=== PATIENT | female | born 1980 | race Caucasian/White ===

== ENCOUNTER 2016-05-29 06:00 | Inpatient (IN) | payer MEDICAID ==
[~2016-05-29] VITALS: Ht 165.1 cm; Wt 71.1 kg
[~2016-05-29 06:00] MED LIST: PREN-39 PO; RTPRO
[2016-05-29 06:26] VITALS: Ht 165.1 cm; Wt 71.1 kg
[2016-05-29] MEDS ORDERED: LIDOCAINE 1% (MPF) 30 ML INJ INJ PRN (06:30)
[2016-05-29] MEDS ORDERED: METHYLERGONOVINE 0.2 MG INJ IM PRN ×2 (06:30→23:00)
[2016-05-29] MEDS ORDERED: IBUPROFEN 600 MG TAB PO PRN (06:30)
[2016-05-29] MEDS ORDERED: OXYTOCIN 30 UNITS/LR 500 ML IV PRN ×2 (06:30→23:00)
[2016-05-29] MEDS ORDERED: MISOPROSTOL 200 MCG TAB PR PRN ×2 (06:30→23:00)
[2016-05-29] MEDS ORDERED: CARBOPROST 250 MCG INJ IM PRN ×2 (06:30→23:00)
[2016-05-29 06:45] VITALS: BP 138/78; PULSE 103; RESP 16
[2016-05-29] MEDS: LACTATED RINGER'S 1,000 ML IV SCH ×2 (07:29→17:25)
[2016-05-29 08:03] LABS: ADD SCAN DIFF NO
[2016-05-29 08:13] LABS: BASOPHIL # 0.1 10^3/ul (0.0-0.1); BASOPHILS % 1.1 % (0.0-2.0); EOSINOPHILS # 0.1 10^3/ul (0.0-0.5); EOSINOPHILS % 1.6 % (0.0-7.0); HEMATOCRIT 32.2 % (37.0-47.0); HEMOGLOBIN 10.6 g/dl (12.0-16.0); LYMPHOCYTES # 1.5 10^3/ul (0.8-2.9); LYMPHOCYTES % 17.4 % (15.0-51.0); MEAN CORPUSCULAR HEMOGLOBIN 28.2 pg (29.0-33.0); MEAN CORPUSCULAR HGB CONC 32.9 g/dl (32.0-37.0); MEAN CORPUSCULAR VOLUME 85.6 fl (82.0-101.0); MEAN PLATELET VOLUME 10.5 fl (7.4-10.4); MONOCYTE # 0.7 10^3/ul (0.3-0.9); MONOCYTES % 7.8 % (0.0-11.0); NEUTROPHILS % 71.6 % (39.0-77.0); PLATELET COUNT 254 10^3/UL (140-415); RED BLOOD COUNT 3.76 10^6/ul (4.20-5.40); RED CELL DISTRIBUTION WIDTH 13.1 % (11.5-14.5); WHITE BLOOD COUNT 8.3 10^3/ul (4.8-10.8)
[2016-05-29 08:21] LABS: INR 0.9; PROTIME 12.1 Sec (12.2-14.2); PT RATIO 0.9
[2016-05-29 08:22] LABS: PARTIAL THROMBOPLASTIN TIME 25.2 Sec (25.0-35.0)
[2016-05-29] MEDS ORDERED: OXYTOCIN 30 UNITS/LR 500 ML IV SCH (09:00)
[2016-05-29] MEDS ORDERED: LACTATED RINGER'S 1,000 ML IV PRN (11:00)
[2016-05-29] MEDS ORDERED: FENTAnyl 2MCG/ML-ROPIV 0.2% 100 ML ONE ×2 (13:19→20:22)
[2016-05-29] MEDS ORDERED: NALOXONE (0.4 MG/ML) INJ IV PRN (20:30)
[2016-05-29] MEDS ORDERED: FENTAnyl 2MCG/ML-ROPIV 0.2% 100 ML BAG EPI SCH (20:30)
[2016-05-29] MEDS: LACTATED RINGER'S 1,000 ML IV* SCH (22:47)
--- NOTE | 2016-05-29 22:59 | LDN ---
Date/Time of Note Date/Time of Note DATE: 05/29/16 TIME: 22:52 Delivery Summary of VTX/VTX twins after induction of labor for IUGR with both twins. Pt delivered over a very small second degree perineal laceration. Twin A is a boy weighing 2635 grams or 5#13oz, 19" long and with Apgars of 8/9. Twin B is a girl weighing 2110 grams or 4#10oz, 17' long, and with Apgars of 8/9. Placenta Delivered: Spontaneously Meconium: none Perineum intact?: No Perineal laceration: 2 Perineal laceration repair: Second degree perineal laceration repaired with 2-0 chromic. Anesthesia type: Epidural Estimated blood loss: 350 Sponge & Needle done & correct: Yes All needle counts correct: Yes Any foreign bodies felt in the: No (vagina) Problems: Delivery Information Sex Infant Sex: male Apgars 1 Minute: 8 5 Minute: 9 Suctioning Nose & mouth suctioned at [place]: No Delee suction performed: No Umbilical Cord Umbilical cord with: 3 Vessels Cord presentations: nuchal cord Nuchal cord present X: 1 Cord Blood was obtained: Yes Delivery Information Sex Sex: female Apgars 1 Minute: 8 5 Minute: 9 Suctioning Nose & mouth suctioned at [place]: No Delee suction performed: No Umbilical Cord Umbilical cord with: 3 Vessels Cord presentations: no nuchal cord Cord Blood was obtained: Yes Mother & Baby Disposition Disposition Mom & Baby to Maternity; Good: Yes Baby to NICU: No ENRIQUE CHAUHAN MD May 29, 2016 22:59
[2016-05-29] MEDS ORDERED: OXYCODONE/ASPIRIN (4.88/325) TAB PO PRN (23:00)
[2016-05-29] MEDS ORDERED: LANOLIN 7 GM TUBE TOP PRN (23:00)
[2016-05-29] MEDS ORDERED: BENZOCAINE 20% 56 ML SPRAY TOP PRN (23:00)
--- NOTE | 2016-05-29 23:05 | HP ---
Date/Time of Note Date/Time of Note DATE: 05/29/16 TIME: 23:00 OB - History Hx of Present Free Text/Dictation 35 y.o. A1 with a twin at 37 weeks and both twins with IUGR and recommended to be delivered at 37 weeks. Estimated Due Date: Jun 18, 2016 : 5 Para: 3 Therapeutic : 1 Care: Good Care Ultrasounds: Normal mid trimester US, Abnormal US findings (both twins with IUGR) Obstetrical Complications: Growth Restriction Medical Complications: Respiratory (Asthma) Past Family/Social History * Past Medical, Surgical, Family and Obstetric Histories reviewed from chart. Rubella: immune RPR/VDRL: Negative GBS Status: Negative HBsAG: Negative OB Admission Exam Vital Signs Vital Signs Vital Signs Date Time Temp Pulse Resp B/P Pulse Ox O2 Delivery O2 Flow Rate FiO2 05/29/16 06:45 98.5 103 16 138/78 98 Room Air Physical Exam HEENT: WNL Heart: Rhythm Normal Lungs: Clear Abdomen: WNL Extremities: Normal Reflexes: Normal Cervical Dilatation: 3cm Effacement: 75% Station: -2 Membranes: Intact Amniotic Fluid: Clear Heart Rate: 140's Accelerations: Accelerations Present Decelerations: No Decelerations Varibility: Moderate Contractions on Admission: >10 Minutes Apart Last 72 hours Lab Results CBC & BMP 05/29/16 07:30 OB Assessment/Plan Reason for admission: induction of labor Other Assessment: Twins with IUGR Plan: Induction Induction Method: per Pitocin Protocol ENRIQUE CHAUHAN MD May 29, 2016 23:05
[2016-05-29] MEDS: OXYTOCIN 30 UNITS/LR 500 ML IV SCH (23:30)
[2016-05-29] MEDS: IBUPROFEN 600 MG TAB PO SCH (23:36)
[2016-05-30] MEDS: OXYTOCIN 30 UNITS/LR 500 ML IV SCH ×2 (00:15→04:07)
[2016-05-30 04:10] VITALS: BP 115/59; PULSE 91; RESP 18
[2016-05-30] MEDS: IBUPROFEN 600 MG TAB PO SCH ×3 (06:00→17:46)
[2016-05-30] MEDS: LACTATED RINGER'S 1,000 ML IV* SCH ×3 (06:47→22:47)
[2016-05-30 15:45] VITALS: BP 105/58; PULSE 83; RESP 18
[2016-05-30] MEDS ORDERED: INFLUENZA VIRUS VACCINE 0.5 ML (DISPENSING) IM* ONE (19:00)
--- NOTE | 2016-05-30 19:07 | DS ---
Date/Time of Note Date/Time of Note DATE: 05/30/16 TIME: 19:04 Obstetrical Discharge Record Final Diagnosis Final Diagnosis: Term delivered Other Final Diagnosis Twins at 37 weeks. IUGR in both twins. Vaginal Delivery Obstetrical Delivery: Spontaneous Other Delivery information Both twins by normal spontaneous vaginal delivery. Complications Complications: Low weight 1500-2500gms Complications Multiple Gestation (Twins), Other (Intrauterine growth retardation in both twins.) Augmentation: Yes Induction: Yes Condition on Discharge Physical Assessment Last Vitals: T=98.3. BP 105/58. Voiding: Yes Bowel Movement: Yes Breast: Soft, non-tender Fundus: Firm Calf Tenderness: No Patient Condition: Good ENRIQUE CHAUHAN MD May 30, 2016 19:07
--- NOTE | 2016-05-30 19:08 | PD.PPDC ---
VP STRATEGY Discharge Instruction Condition Patient Condition: Good Diet Diet: Resume Regular Diet Activity/Restrictions Activity: Normal Activity May Shower Restrictions: No Sexual Activity Nothing in the Vagina No [place] No Tampons, douche Follow-up Follow-up with Physician: 6, Week/Weeks Return to clinic for [facility] Instructions: Fever greater than 101 Chills Worsening abdominal pain Excessive Vaginal Bleeding OB Instructions: Breast Tenderness Depression ENRIQUE CHAUHAN MD May 30, 2016 19:08
[2016-05-30 19:50] VITALS: BP 111/65; PULSE 84; RESP 20
[2016-05-31 04:00] VITALS: BP 110/75; PULSE 72; RESP 19
[2016-05-31] MEDS: IBUPROFEN 600 MG TAB PO SCH ×3 (06:16→11:30)
[2016-05-31] MEDS: LACTATED RINGER'S 1,000 ML IV* SCH (06:16)
[2016-05-31 07:55] LABS: ADD SCAN DIFF NO
[2016-05-31 07:57] LABS: BASOPHIL # 0.1 10^3/ul (0.0-0.1); BASOPHILS % 0.4 % (0.0-2.0); EOSINOPHILS # 0.3 10^3/ul (0.0-0.5); HEMATOCRIT 25.3 % (37.0-47.0); HEMOGLOBIN 8.3 g/dl (12.0-16.0); LYMPHOCYTES # 1.2 10^3/ul (0.8-2.9); LYMPHOCYTES % 8.7 % (15.0-51.0); MEAN CORPUSCULAR HEMOGLOBIN 28.2 pg (29.0-33.0); MEAN CORPUSCULAR HGB CONC 32.8 g/dl (32.0-37.0); MEAN CORPUSCULAR VOLUME 86.1 fl (82.0-101.0); MEAN PLATELET VOLUME 10.4 fl (7.4-10.4); MONOCYTE # 0.8 10^3/ul (0.3-0.9); MONOCYTES % 5.4 % (0.0-11.0); NEUTROPHIL # 11.4 10^3/ul (1.6-7.5); NEUTROPHILS % 82.7 % (39.0-77.0); PLATELET COUNT 184 10^3/UL (140-415); RED BLOOD COUNT 2.94 10^6/ul (4.20-5.40); RED CELL DISTRIBUTION WIDTH 13.1 % (11.5-14.5); WHITE BLOOD COUNT 13.8 10^3/ul (4.8-10.8)
[2016-05-31 08:43] VITALS: BP 108/67; PULSE 86; RESP 18
[2016-05-31] MEDS ORDERED: DIPHTH/TET/ACEL PERTUSS (ADULT) 0.5 ML VIAL IM* ONE (09:00)
[2016-06-01 10:25] LABS: RUBELLA ANTIBODY - IGG <0.90 index
== END 2016-05-31 16:30 | disposition home or self-care (01) | DRG 775 ==
LOC: L-D 06:16 → PP1 05-30 00:35
PROVIDERS: ADMIT Obstetrics & Gynecology; ATTEND Obstetrics & Gynecology
PROC: 0KQM0ZZ Repair Perineum Muscle, Open Approach (ICD-10-PCS; 2016-05-29)
PROC: 10E0XZZ Delivery of Products of Conception, External Approach (ICD-10-PCS; principal; 2016-05-29 06:00)
DX: O36.5930 Maternal care for other known or suspected poor fetal growth, third trimester, not applicable or unspecified (principal); O30.043 Twin pregnancy, dichorionic/diamniotic, third trimester; O09.523 Supervision of elderly multigravida, third trimester; O70.1 Second degree perineal laceration during delivery; Z3A.37 37 weeks gestation of pregnancy; Z37.2 Twins, both liveborn
CPT/HCPCS: 62319; 85025; 85610; 85730; 86592; 86762; 86900; 86901; 87340; 88307; 90686; 90715; 99464; J2210; J2590; J3010; J7120